=== PATIENT | female | born 1930 | race Hispanic/Latino ===

== ENCOUNTER 2017-05-11 11:32 | Outpatient (CLI) | payer MEDICARE ==
--- NOTE | 2017-05-11 12:39 | XRay Report ---
Right hand: Pain. The bones are diffusely demineralized. The digital and MP joints are diffusely narrowed with focally destructive lesion involving the third PIP joint associated with lateral subluxation. Mild medial subluxations also involve the third and fourth MP joints with marked lateral angulation of the first MP joint. 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 There is significant cartilage calcium deposition in multiple areas of the wrist. There is a fracture through the base of the proximal fifth phalanx with mild angulation. There is no new bone formation. Impressions: 1. Fracture of proximal fifth phalanx. 2. 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
== END 2017-05-11 11:33 | disposition home or self-care (01) ==
LOC: SPVIMAG 11:32
PROVIDERS: ATTEND Orthopaedic Surgery Sports Medicine
DX: S62.616A Displaced fracture of proximal phalanx of right little finger, initial encounter for closed fracture (principal); M25.841 Other specified joint disorders, right hand; X58.XXXA Exposure to other specified factors, initial encounter; Y93.89 Activity, other specified; Y92.89 Other specified places as the place of occurrence of the external cause; Y99.8 Other external cause status